=== PATIENT | male | born 1980 | race Caucasian/White ===

== ENCOUNTER → 2017-11-08 | Emergency (ER) | payer MEDICAID ==
[~2017-11-08] VITALS: Ht 182.9 cm; Wt 77.1 kg
[2017-11-08 01:12] VITALS: BP 111/59
[2017-11-08 01:14] VITALS: BP 111/59
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
== END | disposition home or self-care (01) ==
LOC: EMR 00:59
DX: S09.8XXA Other specified injuries of head, initial encounter (principal); Y09 Assault by unspecified means; Y92.9 Unspecified place or not applicable
CPT/HCPCS: 99282